=== PATIENT | female | born 2005 | race Caucasian/White ===

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

== ENCOUNTER → 2023-03-25 | Outpatient (CLI) | payer OTHER, SELFPAY ==
[2023-03-25 17:28] LABS: White Blood Count 5.7 K/mm3 (4.4-11.0)
[2023-03-25 17:29] LABS: Absolute Lymphocyte Count 2.18 X10^3/uL (0.83-4.51); Absolute Neutrophil Count 2.9 X10^3/uL (2.0-7.7); Basophil# 0.04 X10^3/uL; Basophil% 0.7 % (0-1); Eosinophil# 0.08 X10^3/uL; Eosinophils% 1.4 % (0-5); Hematocrit 40.3 % (37-47); Hemoglobin 13.1 g/dL (12.0-15.0); Lymphocyte # 2.18 X10^3/ul (0.83-4.51); Lymphocyte % 38.1 % (19-41); Mean Corp Hgb Conc 32.5 g/dL (32-36); Mean Corpuscular Hgb 29.9 pg (27.0-32.0); Mean Platelet Vol. 9.1 fl (6.2-12.0); Monocyte# 0.48 X10^3/uL; Monocyte% 8.4 % (0-10); NRBC Flagged by Analyzer 0 % (0-5); Neutrophil # 2.93 X10^3/uL (2.7-7.7); Neutrophil % 51.2 % (47-70); Platelet Count 280 K/mm3 (150-450); RBC Distribution Width CV 11.9 % (11.6-14.6); Red Blood Count 4.38 M/mm3 (4.2-5.4)
[2023-03-25 18:28] LABS: Thyroid Stim Hormone (TSH) 1.76 uIU/mL (0.358-3.74)
== END | disposition home or self-care (01) ==
PROVIDERS: PCP Family Medicine; Referring Provider Family Medicine; Visit Provider Family Medicine
DX: R00.0 Tachycardia, unspecified (principal)
CPT/HCPCS: 36415; 84443; 85025

== ENCOUNTER → 2023-10-18 | Outpatient (CLI) | payer BC, SELFPAY ==
--- NOTE | 2023-10-18 09:09 | ECHOD_ITS ---
Reason For Study: Syncope Procedure This was a 2D Doppler, Color Flow transthoracic echocardiogram. Exam performed in department. Left Ventricle Normal LV size. Left ventricular systolic function is normal. The estimated ejection fraction is 60 %. No regional wall motion abnormalities noted. Right Ventricle Normal RV size. Normal systolic function. Atria Normal left atrium. Normal right atrium. Mitral Valve Normal mitral valve. Tricuspid Valve Normal tricuspid valve. Aortic Valve Trisinus/trileaflet aortic valve. Pulmonic Valve Normal pulmonic valve. Great Vessels Normal aortic root. The pulmonary artery is normal size. Normal inferior vena cava. Pericardium/Pleural No pericardial effusion. MMode/2D Measurements & Calculations LVIDd: 5.2 cm IVSd: 0.66 cm Ao root diam: 2.5 cm LVIDs: 3.4 cm LVPWd: 0.68 cm LA dimension: 3.3 cm RVDd: 3.4 cm FS: 35.2 % LAV(MOD-bp): 36.0 ml LVAd ap4: 27.6 cm2 SV(MOD-sp4): 52.8 ml LAV(MOD-bp) Indexed: 22.0 ml/m2 LVLd ap4: 7.4 cm LAV(MOD-sp2): 34.5 ml EDV(MOD-sp4): 84.5 ml LAV(MOD-sp4): 36.2 ml EDV(sp4-el): 86.9 ml LVAs ap4: 15.3 cm2 LVLs ap4: 6.0 cm ESV(MOD-sp4): 31.7 ml ESV(sp4-el): 32.8 ml EF(MOD-sp4): 62.5 % EF(sp4-el): 62.2 % SV(sp4-el): 54.1 ml LA A4 area: 14.5 cm2 RA A4 area: 13.8 cm2 TAPSE: 2.0 cm Time Measurements MV dec time: 0.19 sec Doppler Measurements & Calculations MV E max bennie: 78.4 cm/sec Lat Peak E' Bennie: 22.0 cm/sec Med Peak E' Bennie: 15.5 cm/sec MV A max bennie: 44.9 cm/sec E/E' lat: 3.6 E/E' med: 5.1 MV E/A: 1.7 MV V2 max: 89.3 cm/sec MV P1/2t max bennie: 90.5 cm/sec Ao V2 max: 125.4 cm/sec MV max P.2 mmHg MV P1/2t: 71.0 msec Ao max P.3 mmHg MV V2 mean: 43.4 cm/sec MV dec slope: 373.7 cm/sec2 Ao V2 mean: 84.4 cm/sec MV mean P.94 mmHg Ao mean P.4 mmHg MV V2 VTI: 25.5 cm MVA(P1/2t): 3.1 cm2 Ao V2 VTI: 25.9 cm AV (velocity ratio): 0.88 LV V1 max: 105.4 cm/sec PA V2 max: 107.4 cm/sec TR max bennie: 211.9 cm/sec LV V1 max P.4 mmHg PA V2 mean: 72.3 cm/sec TR max P.0 mmHg LV V1 mean P.6 mmHg LV V1 mean: 76.1 cm/sec LV V1 VTI: 22.7 cm ECHO/Echo Complete Interpretation Summary Normal LV size. Left ventricular systolic function is normal. The estimated ejection fraction is 60 %. Structurally normal valves. Ordering Physician: Chico Rouse Referring Physician: Chico Rouse Performed By: Vernon Sawyer RCS
[2023-10-18 09:44] LABS: Absolute Lymphocyte Count 2.08 X10^3/uL (0.83-4.51); Basophil# 0.06 X10^3/uL; Basophil% 1.3 % (0-1); Eosinophil# 0.08 X10^3/uL; Eosinophils% 1.7 % (0-5); Hemoglobin 14.5 g/dL (12.0-15.0); Lymphocyte # 2.08 X10^3/ul (0.83-4.51); Lymphocyte % 45.1 % (19-41); Mean Corpuscular Hgb 29.4 pg (27.0-32.0); Mean Corpuscular Volume 89.1 fL (81-99); Mean Platelet Vol. 8.9 fl (6.2-12.0); Monocyte# 0.42 X10^3/uL; Monocyte% 9.1 % (0-10); NRBC Flagged by Analyzer 0 % (0-5); Neutrophil # 1.96 X10^3/uL (2.7-7.7); Neutrophil % 42.6 % (47-70); Platelet Count 275 K/mm3 (150-450); RBC Distribution Width CV 11.9 % (11.6-14.6); RBC Distribution Width SD 38.2 fl (35.1-43.9); Red Blood Count 4.94 M/mm3 (4.2-5.4); White Blood Count 4.6 K/mm3 (4.4-11.0)
[2023-10-18 10:10] LABS: Anion Gap 5 (5-15); BUN 12 mg/dL (7-18); BUN/Creat Ratio 16.5 RATIO (10-20); Calcium,Total 9.2 mg/dL (8.5-10.1); Chloride 107 mmol/L (98-107); Creatinine, Serum 0.73 mg/dL (0.55-1.02); EST Glomerular Filtration Rate 109 mL/min (>60); Est Glom Filt Rate - Afr Amer 132 mL/min (>60); Glucose 91 mg/dL (74-106); Potassium 4.2 mmol/L (3.5-5.1); Sodium Level 139 mmol/L (136-145)
[2023-10-18 10:12] LABS: Internal QC Validated? YES +Cl - CLEAR BKGD; Pregnancy, Serum, hCG Quali. NEGATIVE Negative
--- NOTE | 2023-10-18 13:30 | PCM.TILTTABL ---
Staff Staff: Catalina Auguste and Sonia Coy Summary Pre Test Resting HR: 60 Pre Test Resting BP: 105/61 Minimum Test HR: 47 Maximum Test HR: 124 Minimum Test BP: 63/33 Maximum Test BP: 115/80 Reason for Test Termination: Syncope Physician Tilt Table Report Patient's Physicians Primary Care Physician: Mei Banks Indications/Diagnosis: syncope Procedure Comments: Patient was brought to the noninvasive lab in the postabsorptive nonsedated state. Informed consent was obtained. Initial blood pressure was obtained as well as heart rate. Initial EKG demonstrated heart rate of 63 bpm with a blood pressure 103/61 mmHg. The patient was then put in the 70 degree head upright tilt position. The heart rate increased to approximately 120 bpm within the first 20 minutes. The patient complained of feeling foggy in the left legs feeling funny. Patient completed 30 minutes of the head upright tilt position and then was placed back in the recumbent position. Patient was administered 0.4 mg of sublingual nitroglycerin. He was put in the 70 degree head upright tilt position. Patient was noted to develop bradycardia with heart rates down to the mid 40s and then patient had a syncopal episode was placed back in the recumbent position with improvement in heart rate and blood pressure. Final blood pressure 104/64 with a heart rate of 63 bpm with no symptoms. Summary: The above with the increase in heart rate of more than 30 beats within the first 10 minutes suggests likelihood of postural orthostatic tachycardia syndrome likely the hypovolemic type. It appears that it culminated in a vasodepressive reaction.
[2023-10-18 13:37] VITALS: BP 105/61; BP 115/80; BP 63/33
== END | disposition home or self-care (01) ==
PROVIDERS: PCP Family Medicine; Referring Provider Internal Medicine Cardiovascular Disease; Visit Provider Internal Medicine Cardiovascular Disease
DX: G90.A Postural orthostatic tachycardia syndrome [POTS] (principal); R55 Syncope and collapse; R53.83 Other fatigue
CPT/HCPCS: 36415; 80048; 84703; 85025; 93306; 93660; J7040; A4216

== ENCOUNTER → 2024-05-31 | Outpatient (CLI) | payer BC, SELFPAY ==
[2024-06-02 06:08] LABS: CMV Acute Antibody IgM < 30.0 AU/mL (0.0-29.9); CMV Antibody IgG < 0.60 U/mL (0.00-0.59)
== END | disposition home or self-care (01) ==
LOC: BFHLAB 16:17
PROVIDERS: PCP Family Medicine; Visit Provider Family Medicine
DX: J35.01 Chronic tonsillitis (principal)
CPT/HCPCS: 36415; 86644; 86645